=== PATIENT | female | born 1980 | race Caucasian/White ===

== ENCOUNTER → 2016-05-02 | Outpatient (CLI) | payer OTHER | LOC: BMCIMAGING 08:34 | PROVIDERS: ATTEND Family Medicine | DX: M25.512 Pain in left shoulder (principal) ==

== ENCOUNTER 2016-08-03 05:38 | Observation (INO) | payer OTHER ==
[2016-08-03] MEDS ORDERED: LR 1,000 ML IV ONE (06:30)
[2016-08-03] MEDS ORDERED: LIDOCAINE 1% 5 ML SDV ID PRN (06:30)
[2016-08-03] MEDS ORDERED: LIDOCAINE 1% 2 ML INJ ONE (06:34)
[2016-08-03] MEDS ORDERED: ceFAZolin 2 GM/DEXTROSE 100 ML IV ONE (06:35)
[2016-08-03] MEDS ORDERED: BUPIVACAINE/EPI 0.5% 30 ML SDV ONE (06:57)
[2016-08-03] MEDS ORDERED: LR 1,000 ML IV SCH ×2 (07:00→08:00)
[2016-08-03] MEDS ORDERED: SCOPOLAMINE HYDROBROMIDE 1.5 MG PATCH TD ONE ×2 (07:06→07:22)
[2016-08-03] MEDS ORDERED: MIDAZOLAM 2 MG/2 ML VIAL IVP ONE (07:06)
--- NOTE | 2016-08-03 07:06 | PDANEPAE ---
ANE History of Present Illness Patient presents for robotic hysterectomy. ANE Past Medical History - Cardiovascular History Hx Hypertension: No Hx Arrhythmias: No Hx Chest Pain: No Hx Coronary Artery / Peripheral Vascular Disease: No Hx CHF / Valvular Disease: No Hx Palpitations: No - Pulmonary History Hx COPD: No Hx Asthma/Reactive Airway Disease: No Hx Recent Upper Respiratory Infection: No Hx Oxygen in Use at Home: No - Neurologic History Hx Cerebrovascular Accident: No Hx Seizures: No Hx Dementia: No - Endocrine History Hx Diabetes: No Hypothyroid: Yes - Renal History Hx Renal Disorders: No - Liver History Hx Hepatic Disorders: No - Neurological & Psychiatric Hx Hx Neurological and Psychiatric Disorders: Yes - Cancer History Hx Cancer: No - Congenital Disorder History Hx Congenital Disorders: No - GI History Hx Gastrointestinal Disorders: No - Chronic Pain History Chronic Pain: Yes (BACK PAIN) ANE Review of Systems - Exercise capacity Exercise capacity: <4 METS METS (RN): 5 METS ANE Patient History - Allergies Allergies/Adverse Reactions: Sulfa (Sulfonamide Antibiotics) Allergy (Severe, Verified 06/20/16 14:57) ELLI WELCH diphenhydramine [From Benadryl] Allergy (Intermediate, Verified 06/20/16 14:57) SEVERE AGGITATION prednisone Allergy (Intermediate, Verified 06/20/16 14:57) Anxiety promethazine [From Phenergan] Allergy (Intermediate, Verified 06/20/16 14:57) SEVERE AGGITAION codeine Allergy (Mild, Verified 06/20/16 14:57) Rash fentanyl Allergy (Verified 08/03/16 06:23) methadone Allergy (Uncoded 08/03/16 06:23) - Home Medications Home Medications: CYCLOBENZAPRINE HCL [Flexeril] 2.5 mg PO DAILY PRN 06/20/16 [Last Taken 12:00] Cholecalciferol Vit D3 [Vitamin D3 (*)] 10,000 units PO DAILY 06/20/16 [Last Taken 08/02/16 07:30] Cyanocobalamin [Vitamin B12 1000MCG/ML (*)] 1,000 mcg IM WE@0900 06/20/16 [Last Taken 08/02/16 07:30] Herbals/Supplements -Info Only 1 ea PO DAILY 06/20/16 [Last Taken 08/02/16 07:30 ] Nature-Thyroid 08/03/16 [Last Taken 08/02/16 07:30] - NPO status NPO Since - Liquids (Date): 08/03/16 NPO Since - Liquids (Time): 22:00 NPO Since - Solids (Date): 07/27/16 NPO Since - Solids (Time): 22:00 - Anes Hx Anes Hx: post operative nausea and vomiting - Smoking Hx Smoking Status: Never smoked - Family Anes Hx Family Hx Anesthesia Complications: NEG ANE Labs/Vital Signs - Vital Signs Blood Pressure: 117/70 Heart Rate: 96 Respiratory Rate: 18 O2 Sat (%): 98 Height: 177.8 cm Weight: 61.235 kg ANE Physical Exam - Airway Neck exam: FROM Mallampati Score: Class 1 Mouth exam: normal dental/mouth exam - Pulmonary Pulmonary: no respiratory distress - Cardiovascular Cardiovascular: regular rate and rhythym - ASA Status ASA Status: II ANE Anesthesia Plan Anesthesia Plan: general endotracheal anesthesia (RBA Discussed, patient agrees to proceed)
[2016-08-03] MEDS ORDERED: HYDROmorphONE/DILAUDID 2 MG/ML INJ ONE (07:11)
[2016-08-03] MEDS ORDERED: PROPOFOL 200 MG/20 ML VIAL ONE (07:11)
[2016-08-03] MEDS ORDERED: PROPOFOL/EMULSION 500 MG/50 ML BOTTLE IV ONE (07:11)
[2016-08-03] MEDS ORDERED: ROCURONIUM 50 MG/5 ML VIAL ONE ×2 (07:15→08:24)
[2016-08-03] MEDS ORDERED: MIDAZOLAM 2 MG/2 ML VIAL ONE (07:20)
--- NOTE | 2016-08-03 07:21 | PDHPUP ---
History & Physical Update H&P update statement: This history and physical update is based on an assessment of the patient which was completed after admission or registration (within 24 hours), but prior to the surgery/procedure. H&P update: H&P reviewed & patient examined, no change in patient's condition since H&P completed
[2016-08-03] MEDS ORDERED: OXYCODONE/APAP 5/325 TAB PO PRN ×2 (07:29→07:45)
[2016-08-03] MEDS ORDERED: NALOXONE HCL 0.4 MG/ML INJ IVP PRN (07:29)
[2016-08-03] MEDS ORDERED: ALBUTEROL 3 ML DEYVIAL IH PRN (07:29)
[2016-08-03] MEDS ORDERED: PROMETHAZINE HCL 25 MG/ML INJ IVP PRN (07:45)
[2016-08-03] MEDS ORDERED: SIMETHICONE DROPS 30 ML BOTTLE PO PRN (07:45)
[2016-08-03] MEDS ORDERED: ZOLPIDEM TARTRATE 5 MG TAB PO PRN (07:45)
[2016-08-03] MEDS ORDERED: ONDANSETRON 4 MG/2 ML VIAL ONE (09:23)
[2016-08-03] MEDS ORDERED: DEXAMETHASONE 4 MG/ML VIAL ONE (09:23)
[2016-08-03] MEDS ORDERED: KETOROLAC 30 MG/1 ML SDV ONE (09:23)
[2016-08-03] MEDS ORDERED: SUGAMMADEX SODIUM 200 MG/2 ML VIAL IVP ONE (09:24)
[2016-08-03] MEDS ORDERED: HYDROmorphONE/DILAUDID 1 MG/ML SYR ONE ×3 (10:10→11:27)
[2016-08-03] MEDS: HYDROmorphONE/DILAUDID 1 MG/ML SYR IVP PRN ×11 (10:12→23:36)
--- NOTE | 2016-08-03 10:12 | POSTANESTH ---
Post Anesthetic Evaluation Cardiovascular Status: Normal, Stable Respiratory Status: Normal, Stable Level of Consciousness/Mental Status: Can Participate in Eval Pain Control: Adequate, Prn Tx Ordered Nausea/Vomiting Control: Adequate, Prn Tx Ordered Complications Possibly Related to Anesthesia: None Noted
--- NOTE | 2016-08-03 10:33 | POSTOPPROG ---
Post Op Note Date of Operation: 08/03/16 Surgeon: Solo Christianson Farm Contractor: Aura Marie Anesthesia: GET(General Endotracheal) Pre-op Diagnosis: Endometriosis, dysmenorrhea Post-op Diagnosis: Same Procedure: Robotic hyst, BS, LO, bilat ureterolysis, US lig colpopexy, excise endo Findings: Endo in post culdesac, bilat ovarian fossa Inf/Abcess present in the surg proc area at time of surgery?: No EBL: Minimal Complications: None Specimen(s): Uterus, cervix, bilat tubes, left ovary, pelvic peritoneum with endo
[2016-08-03] MEDS ORDERED: KETOROLAC 30 MG/1 ML SDV IVP ONE (12:00)
[2016-08-03] MEDS: DOCUSATE SODIUM 100 MG CAP PO SCH ×2 (13:19→22:04)
[2016-08-03] MEDS: SIMETHICONE 80 MG TAB CHEW PO SCH ×3 (13:20→22:04)
[2016-08-03] MEDS: ONDANSETRON 4 MG/2 ML VIAL IVP PRN (18:39)
--- NOTE | 2016-08-03 19:04 | GOP ---
[f rep st] OPERATIVE REPORT DATE OF OPERATION: 08/03/2016 SURGEON: Solo Christianson MD WILDERNESS GUIDE: Aura Marie CFA. ANESTHESIA: General. PREOPERATIVE DIAGNOSIS: POSTOPERATIVE DIAGNOSIS: 1. Dysmenorrhea. 2. Endometriosis. 3. Uterine prolapse. 4. Urinary frequency. 5. Sigmoid lesion. PROCEDURE PERFORMED: 1. Robotic-assisted total laparoscopic hysterectomy, bilateral salpingectomy, left oophorectomy. 2. Bilateral ureterolysis. 3. Excision of endometriosis. 4. Bilateral uterosacral ligament colpopexy. 5. Right ovarian pexy. 6. Cystoscopy. 7. Excision of sigmoid lesion. FINDINGS: SPECIMENS: Uterus, cervix, bilateral tubes, left ovary, and pelvic peritoneum with endometriosis. Sigmoid lesion. ESTIMATED BLOOD LOSS: Scant. DESCRIPTION OF PROCEDURE: The patient was taken to the operating room where she was identified. Ge neral anesthesia was administered and found to be adequate. She was placed in the lithotomy positio n and prepared and draped in normal sterile fashion. A Bourgeois catheter was placed in her bladder. A [employer] uterine manipulator was placed into the endometrial cavity and sutured to the cervix. A 1 cm infraumbilical incision was made with a scalpel. The Veress needle with a CO2 gas flowing wa s advanced into the peritoneal cavity. The abdomen was then insufflated with carbon dioxide gas. T he 12 mm trocar followed by the laparoscope were then inserted. The upper abdomen was unremarkable. There was no evidence of endometriosis on either diaphragm, liver, stomach, or gallbladder. She d id have endometriosis throughout the posterior cul-de-sac, bilateral ovarian fossae. She had severa l lesions on her sigmoid colon. Two lateral ports were placed on the right, 1 on the left under dir ect visualization. The patient was then placed in Trendelenburg position and the da Lamar robot doc ked on the left side. The instruments were then brought into the abdominal cavity under direct visu alization. The lesions on the sigmoid colon were excised and sent to Pathology. They extended approximately 50 % into the muscularis layer. The entire posterior cul-de-sac peritoneum with endometriosis was comp letely excised. A bilateral ureterolysis was required to remove the endometriosis in both ovarian f ossae due to lesions overlying both ureters. The pelvic peritoneum near the pelvic brim on each jaclyn e was incised. The ureter was gently dissected free. The ureter was lateralized from the pelvic br im all the way down to the bladder. Once this was accomplished, the overlying peritoneum and endome triosis were completely excised. The patient had endometriosis on the left ovary as well as a small complex cyst. She had requested we keep the right ovary. The left round ligament was divided. Th e anterior leaf of the broad ligament was incised to the bifurcation of the left common iliac vessel s. A window was then created in the posterior leaf. The infundibulopelvic vessels were then cauter ized and transected. The anterior leaf of the peritoneum was then incised over the left uterine ves sels and across the cervix. The left uterine vasculature was then cauterized and transected. The b ladder was gently dissected off the cervix and upper vagina. The right fallopian tube was then along the mesosalpinx. The utero-ovarian ligament follo wed by the round ligament were then cauterized and transected. The anterior leaf of the broad ligam ent was incised on the right, and the uterine vasculature cauterized and transected. A circumferent ial colpotomy incision was then made with the hot yoselin. All specimens were then removed through t he vagina. The vaginal cuff was then closed with a running suture of 0 V-Loc 180. A bilateral uter osacral ligament colpopexy was performed by attaching the lateral aspects of the vaginal cuff to the ipsilateral uterosacral ligaments near their insertion into the coccygeal-sacrospinous ligament com plexes using 0 PDS suture. The pelvis was then copiously irrigated with sterile saline, and hemosta sis was present. There were several small lesions of endometriosis on the right ovary. These were fulgurated. Due to the concern cyclic pelvic pain and concern for the need for a right oophorectomy in the future, a right ovarian pexy was performed. The right ovary was sutured to the right round ligament using 3-0 Vicryl Rapide suture. The robot was then undocked. The fascia was closed with 0 Vicryl, skin with 4-0 Monocryl and surgical adhesive. Cystoscopy was then performed. Both ureters had vigorous jets of urine. There is no evidence of bl adder nor urethral injury seen. The patient had multiple Hunner ulcers on the right aspect of the b ladder dome. She had approximately 5 lesions. Photographs were taken. The Bourgeois catheter was then replaced. Anesthesia was reversed, and patient taken to PACU awake in stable condition. LPREOPERATIVE DIAGNOSES: 1. Dysmenorrhea. 2. Endometriosis. 3. Uterine prolapse. 4. Urinary frequency. COMPLICATIONS: None. DISPOSITION: Patient is stable to PACU. /[id number]/MODL
[2016-08-03] MEDS: KETOROLAC 30 MG/1 ML SDV IVP PRN (19:55)
[2016-08-04] MEDS: KETOROLAC 30 MG/1 ML SDV IVP PRN ×4 (02:04→19:50)
[2016-08-04] MEDS: HYDROmorphONE/DILAUDID 1 MG/ML SYR IVP PRN ×5 (02:41→17:09)
[2016-08-04 05:26] LABS: % IMMATURE GRANULYOCYTES 0.4 % (0.0-1.1); ABSOLUTE IMMATURE GRANULOCYTES 0.03 10^3/uL (0.00-0.10); ADD DIFF? NO; ADD MORPH? NO; ADD SCAN? NO; ATYPICAL LYMPHOCYTE FLAG 0 (0-99); FRAGMENT RBC FLAG 0 (0-99); HEMOGLOBIN 10.7 g/dL (12.6-16.3); LEFT SHIFT FLG 0 (0-99); LIPEMIA HEMOLYSIS FLAG 80 (0-99); MEAN CELL HEMOGLOBIN 29.7 pg (27.9-34.1); MEAN CELL HEMOGLOBIN CONCENTR. 32.4 g/dL (32.4-36.7); MEAN CELL VOLUME 91.7 fL (81.5-99.8); MEAN PLATELET VOLUME 10.7 fL (8.7-11.7); PLATELET CLUMPS FLAG 0 (0-99); PLATELET COUNT 227 10^3/uL (150-400); RED CELL DISTRIBUTION WIDTH 13.1 % (11.5-15.2)
[2016-08-04] MEDS ORDERED: PATCH REMOVAL 1 EA PATCH TD ONE (07:08)
[2016-08-04] MEDS ORDERED: ENOXAPARIN 40 MG/0.4 ML SYR SC SCH (09:00)
[2016-08-04] MEDS: SIMETHICONE 80 MG TAB CHEW PO SCH ×4 (09:29→19:54)
[2016-08-04] MEDS: DOCUSATE SODIUM 100 MG CAP PO SCH ×2 (09:29→19:53)
--- NOTE | 2016-08-04 12:04 | SOAPPROG ---
SOAP Progress Note Assessment/Plan: Assessment: Will try oral Dilaudid to see if controls pain without nausea. Reassess voiding in several hours. Plan: 08/04/16 12:02 Discharge home if able to control pain with p.o. meds. Will replace garcia if continues to be unable to void adequately. If continues to require i.v. meds then will need to stay another night. Subjective: Cori is not tolerating oral narcotics. I.V. Toradol and Dilaudid adequate. Unable to urinate. Straight cath for 300 ml. Some nausea with food. Objective: Vital Signs Temp Pulse Resp BP Pulse Ox 36.7 C 82 17 104/67 100 08/04/16 09:03 08/04/16 09:03 08/04/16 09:03 08/04/16 09:03 08/04/16 09:03 Laboratory Results 08/04/16 05:15 08/03/16 08/04/16 08/05/16 05:59 05:59 05:59 Intake Total 3500 Output Total 1725 Balance 1775 - Pending Discharge Pending Discharge Within 24 Hours: Yes Pending Discharge Date: 08/05/16 Pending Discharge Time: 11:00 Physical Exam - Physical Exam General Appearance: WD/WN, alert, mild distress Respiratory: lungs clear Cardiac/Chest: regular rate, rhythm Abdomen: normal bowel sounds, non-tender, soft (Incisions clean, dry, and intact.) ICD10 Worksheet Patient Problems: Problems Problem Status Onset Dysmenorrhea Acute Endometriosis of pelvic peritoneum Acute - ICD10 Problem Qualifiers (1) Endometriosis of pelvic peritoneum (2) Dysmenorrhea
[2016-08-04] MEDS: ONDANSETRON 4 MG/2 ML VIAL IVP PRN (12:52)
[2016-08-04] MEDS: HYDROmorphONE/DILAUDID 2 MG TAB PO PRN (20:07)
[2016-08-04] MEDS: PHENAZOPYRIDINE HCL 200 MG TAB PO SCH (22:13)
[2016-08-05] MEDS: HYDROmorphONE/DILAUDID 2 MG TAB PO PRN ×3 (00:06→20:38)
[2016-08-05] MEDS: KETOROLAC 30 MG/1 ML SDV IVP PRN ×4 (02:08→20:05)
[2016-08-05] MEDS: DOCUSATE SODIUM 100 MG CAP PO SCH ×2 (07:59→18:16)
[2016-08-05] MEDS: SIMETHICONE 80 MG TAB CHEW PO SCH ×4 (08:00→21:13)
[2016-08-05] MEDS: PHENAZOPYRIDINE HCL 200 MG TAB PO SCH ×3 (08:00→18:20)
[2016-08-05 12:11] LABS: COLOR AMBER; LEUKOCYTE ESTERASE,URINE NEGATIVE (NEGATIVE); NITRITE,URINE POSITIVE (NEGATIVE)
[2016-08-05 12:14] LABS: BACTERIA 2+ /hpf (NONE SEEN); RBC,URINE 25-50 /hpf (0-3)
[2016-08-05] MEDS: DIAZEPAM 10 MG/2 ML SYR IVP PRN ×2 (12:55→21:24)
[2016-08-05] MEDS ORDERED: OPIUM/BELLADONNA ALKALO SUPP PR PRN (17:00)
[2016-08-05] MEDS ORDERED: POLYETHYLENE GLYCOL 3350 17 GM PKT PO PRN (17:01)
[2016-08-05] MEDS ORDERED: BISACODYL 10 MG SUPP PR PRN (17:01)
[2016-08-05] MEDS ORDERED: MAGNESIUM HYDROXIDE 30 ML UDCUP PO PRN (17:01)
[2016-08-05] MEDS ORDERED: LACTULOSE 20 GM/30 ML UDCUP PO PRN (17:01)
[2016-08-05] MEDS: SENNOSIDES/DOCUSATE SODIUM TAB PO SCH (18:16)
[2016-08-06] MEDS: ACETAMINOPHEN 500 MG TAB PO PRN ×2 (00:10→12:17)
[2016-08-06] MEDS: KETOROLAC 30 MG/1 ML SDV IVP PRN ×3 (02:09→14:56)
[2016-08-06] MEDS: SENNOSIDES/DOCUSATE SODIUM TAB PO SCH (08:54)
[2016-08-06] MEDS: PHENAZOPYRIDINE HCL 200 MG TAB PO SCH ×2 (10:00→14:57)
[2016-08-06 13:03] VITALS: BP 108/73; PULSE 83; RESP 16; TEMP 97.7
[2016-08-06 13:05] VITALS: O2SAT 95
[2016-08-06] MEDS: SIMETHICONE 80 MG TAB CHEW PO SCH (13:17)
[2016-08-06] MEDS: DIAZEPAM 10 MG/2 ML SYR IVP PRN (14:52)
== END 2016-08-06 17:45 | disposition home or self-care (01) ==
LOC: F3E 05:38 → PREOBSVTOIN 10:37 → FOB 12:45 → PREINTOOBSV 13:42
PROVIDERS: ADMIT Obstetrics & Gynecology; ATTEND Obstetrics & Gynecology
PROC: 0UT9FZZ Resection of Uterus, Via Natural or Artificial Opening With Percutaneous Endoscopic Assistance (ICD-10-PCS; principal; 2016-08-03 07:15)
PROC: 0UT1FZZ Resection of Left Ovary, Via Natural or Artificial Opening With Percutaneous Endoscopic Assistance (ICD-10-PCS; principal; 2016-08-03 07:15)
PROC: 0UUG4JZ Supplement Vagina with Synthetic Substitute, Percutaneous Endoscopic Approach (ICD-10-PCS; principal; 2016-08-03 07:15)
PROC: 0UT7FZZ Resection of Bilateral Fallopian Tubes, Via Natural or Artificial Opening With Percutaneous Endoscopic Assistance (ICD-10-PCS; principal; 2016-08-03 07:15)
DX: N80.9 Endometriosis, unspecified (principal); N94.6 Dysmenorrhea, unspecified; R35.0 Frequency of micturition; K63.9 Disease of intestine, unspecified
CPT/HCPCS: 57425; 58571; G0378; J0690; J1100; J1170; J1885; J2250; J2405; J2550; J2704